=== PATIENT | male | born 1955 | race Caucasian/White ===

== ENCOUNTER 2019-06-23 07:43 | Outpatient (CLI) | payer BC ==
[2019-06-23 11:19] LABS: Hemoglobin 16.1 g/dL (14.0-18.0); Mean Corpuscular HGB CONC 34.1 g/dL (32.0-36.0); Mean Corpuscular Volume 93.8 fL (78.0-98.0); Mean Platelet Volume 7.2 fL (7.4-10.4); Platelet Count 233 thou/uL (130-400); Red Blood Cell (RBC) Count 5.02 mill/uL (4.70-6.10); White Blood Cell (WBC) Count 4.8 thou/uL (4.8-10.8)
[2019-06-23 11:26] LABS: Bacteria/HPF None Seen HPF (None Seen); Bilirubin Negative (Negative); Blood, Urine Negative (Negative); Clarity Clear (Clear); Glucose, Urine (Dipstick) Normal (Negative); Leukocyte Negative Leu/uL (Negative); Nitrite Negative (Negative); Protein, Urine (Dipstick) Negative (Neg-Trace); RBC/HPF 0-3 HPF (0-3); Squamous Epithelial 0-3 HPF (0-3); Urobilinogen Normal mg/dL (Less than 2); WBC/HPF 0-3 HPF (0-3)
[2019-06-23 11:37] LABS: Anion Gap 13 mmol/L (10-20); BUN (Urea Nitrogen) 22 mg/dL (8.4-25.7); Calc. Creatinine Clearance 0 mL/min (70-130); Calcium 8.9 mg/dL (7.8-10.44); Carbon Dioxide 25 mmol/L (23-31); Chloride 106 mmol/L (98-107); Estimated GFR-MDRD 87; Glucose 84 mg/dL (80-115); Potassium 3.9 mmol/L (3.5-5.1); Sodium 140 mmol/L (136-145)
--- NOTE | 2019-06-23 16:49 | EKG ---
Test Reason : Blood Pressure : / mmHG Vent. Rate : 045 BPM Atrial Rate : 045 BPM P-R Int : 170 ms QRS Dur : 088 ms QT Int : 430 ms P-R-T Axes : 071 052 042 degrees QTc Int : 371 ms Marked sinus bradycardia Abnormal ECG Confirmed by BEBO RODRIGUEZ ([id number]) on 06/23/2019 4:48:41 PM Referred By: JANA Confirmed By:BEBO RODRIGUEZ
== END 2019-06-23 07:44 | disposition home or self-care (01) ==
LOC: LABBT 07:43
PROVIDERS: ATTEND Urology
DX: Z01.818 Encounter for other preprocedural examination (principal); N40.0 Benign prostatic hyperplasia without lower urinary tract symptoms
CPT/HCPCS: 80048; 81001; 85027; 87086; 93005; 93010

== ENCOUNTER 2019-07-01 06:10 | Day surgery (SDC) | payer BC ==
[2019-06-23 09:23] VITALS: BMI 24.9
[2019-07-01] MEDS ORDERED: Iothalamate Meglumine 60% 50 ML VIAL FS ONE (06:27)
[2019-07-01] MEDS ORDERED: Fentanyl 100 MCG/2 ML VIAL ONE (06:59)
[2019-07-01] MEDS ORDERED: Levofloxacin 500 mg/D5W 100 ml Premix Bag ONE (07:16)
[2019-07-01] MEDS ORDERED: Ketorolac Tromethamine 30 MG/ML VIAL ONE (09:07)
[2019-07-01] MEDS ORDERED: Phenazopyridine HCl 97.5 MG TABLET ONE (09:07)
[2019-07-01] MEDS ORDERED: Oxybutynin 5 MG TAB ONE (09:08)
[2019-07-01] MEDS ORDERED: Lidocaine 1% PF 5 ML VIAL ONE (09:17)
[2019-07-01] MEDS ORDERED: PROPOFOL 200 MG/20 ML VIAL ONE (09:17)
--- NOTE | 2019-07-01 10:09 | OP ---
DATE OF PROCEDURE: 07/01/2019 PREOPERATIVE DIAGNOSIS: Enlarged prostate with lower urinary tract symptoms. POSTOPERATIVE DIAGNOSIS: Enlarged prostate with lower urinary tract symptoms. PROCEDURE PERFORMED: UroLift utilizing total of 6 implants. ANESTHESIA: TIVA. COMPLICATIONS: None. BLOOD LOSS: 50 mL. SPECIMEN: None. DESCRIPTION OF PROCEDURE: After informed consent, the patient was brought to the operating room and transferred to the table. Anesthesia was established. A time-out was performed showing the correct patient, site, and procedure. Preoperative antibiotics were administered. He was prepped and draped in the lithotomy position. 20[place]izen [place] cystoscope was inserted into the bladder, and the prostate and the bladder were systematically examined. He has a 4 cm channel prostate with large coapting lateral lobes, and no appreciable median lobe. The bladder was examined noting no mucosal abnormalities, and moderate trabeculation with a few small diverticula at the base of the bladder. The cystoscopy bridge was replaced with the UroLift delivery device. The first treatment site was the patient's left side approximately 2 cm distal to the bladder neck. The distal tip of the delivery device was then angled laterally approximately 20 degrees of this position to compress the lateral lobe. The trigger was pulled, thereby deploying a needle containing the implant through the prostate. The needle was then retracted, allowing one end of the implant to be delivered to the capsular surface of the prostate. The implant was then tensioned to assure capsular seeding and removal of slack monofilament. The device was then angled back toward midline and slowly advanced proximally about 3 to 4 mm until cystoscopic verification of the monofilament being centered in the delivery bay. The urethral end piece was then affixed to the monofilament, thereby tailoring the size of the implant. Excess filament was then severed. The delivery device was then readvanced into the bladder. The same procedure was then repeated on the right side near the bladder neck deploying the second implant. Two additional implants, the third and the fourth, were delivered just proximal to the verumontanum, again one on the right and one on the left side of the prostate following the same technique. Cystoscopy then revealed persistent area of obstruction, and two more implants, the fifth and the sixth, were delivered in the mid prostate. After the sixth implant was placed, a final cystoscopic view revealed no persistent obstruction. He had an excellent channel from the verumontanum through the bladder neck anteriorly. Total number of implants used, 6. Final cystoscopy was conducted to inspect location set of each implant and to confirm once again the presence of the continuous anterior channel. With the flow turned off, the patient was having a fair amount of bleeding secondary to the size of his prostate. At this point, I elected to place a catheter. The scope was removed, and a 20[place]Citizen [place] Denson catheter was placed with 10 mL instilled in the balloon. This was irrigated noting return of clear irrigant. The patient was then awoken from anesthesia, transferred back to the hospital bed, and taken to PACU in stable condition, where he will discharge home upon recovery. IMPLANT LOCATION SUMMARY: 1. Implant #1: Left proximal prostatic urethra. 2. Implant #2: Right proximal prostatic urethra. 3. Implant #3: Left distal prostatic urethra. 4. Implant #4: Right distal prostatic urethra. 5. Implant #5: Left mid prostatic urethra. 6. Implant #6: Right mid prostatic urethra. CRITERIA: No active UTI. Conservative management has failed, and surgical intervention is indicated. IPSS 16/3. Prostate volume 80 g. Job ID: [id number]
== END 2019-07-01 10:50 | disposition home or self-care (01) ==
LOC: SDC 06:10
PROVIDERS: ATTEND Urology
PROC: 0T7D8DZ Dilation of Urethra with Intraluminal Device, Via Natural or Artificial Opening Endoscopic (ICD-10-PCS; principal; 2019-07-01)
DX: N40.1 Benign prostatic hyperplasia with lower urinary tract symptoms (principal); Z79.899 Other long term (current) drug therapy; Z88.8 Allergy status to other drugs, medicaments and biological substances; Z91.018 Allergy to other foods
CPT/HCPCS: J1885; J1956; J2001; J2704; J3010

== ENCOUNTER 2022-05-11 08:00 | Outpatient (CLI) | payer BC ==
[2022-05-11] MEDS ORDERED: Iopamidol-370 76% 500 ML 1 ML ONE (14:08)
== END 2022-05-11 08:01 | disposition home or self-care (01) ==
LOC: BICCT 08:00
PROVIDERS: ATTEND Urology
DX: R97.20 Elevated prostate specific antigen [PSA] (principal); N40.1 Benign prostatic hyperplasia with lower urinary tract symptoms; R31.0 Gross hematuria; K57.30 Diverticulosis of large intestine without perforation or abscess without bleeding; K57.10 Diverticulosis of small intestine without perforation or abscess without bleeding
CPT/HCPCS: 74178; Q9967

== ENCOUNTER 2022-09-11 06:23 | Day surgery (SDC) | payer BC ==
[2022-09-08 09:49] VITALS: BMI 25.5
[2022-09-11] MEDS ORDERED: Lidocaine 1% PF 5 ML VIAL ONE (08:20)
[2022-09-11] MEDS ORDERED: PROPOFOL 200 MG/20 ML VIAL ONE (08:20)
== END 2022-09-11 09:23 | disposition home or self-care (01) ==
LOC: SDC 06:23
PROVIDERS: ATTEND Internal Medicine
PROC: 0DJD8ZZ Inspection of Lower Intestinal Tract, Via Natural or Artificial Opening Endoscopic (ICD-10-PCS; principal; 2022-09-11)
DX: Z12.11 Encounter for screening for malignant neoplasm of colon (principal); K57.30 Diverticulosis of large intestine without perforation or abscess without bleeding; K64.8 Other hemorrhoids; I10 Essential (primary) hypertension; I47.20 Ventricular tachycardia, unspecified; Z79.82 Long term (current) use of aspirin; Z79.899 Other long term (current) drug therapy; Z88.8 Allergy status to other drugs, medicaments and biological substances; Z91.018 Allergy to other foods; Z95.810 Presence of automatic (implantable) cardiac defibrillator
CPT/HCPCS: J2704

== ENCOUNTER 2024-12-21 20:50 | Emergency (ER) | payer BC ==
[2024-12-21 21:13] LABS: #Basophils 0.08 10x3/uL (0.0-0.2); #Eosinophils 0.11 10x3/uL (0.0-0.7); #Monocytes 0.74 10x3/uL (0.11-0.59); #Neutrophils 4.34 10x3/uL (1.40-6.50); %Basophils 1.2 % (0.0-1.0); %Eosinophils 1.7 % (0.0-10.0); %Lymphocytes 20.0 % (21.0-51.0); %Monocytes 11.1 % (0.0-10.0); %Neutrophils 65.2 % (42.0-75.0); Hematocrit 45.1 % (42.0-52.0); Hemoglobin 15.3 g/dL (14.0-18.0); Mean Corpuscular Hemoglobin 29.8 pg (27.0-31.0); Mean Corpuscular Volume 87.7 fL (78.0-98.0); Platelet Count 269 10x3/uL (130-400); Red Blood Cell (RBC) Count 5.14 mill/uL (4.70-6.10); White Blood Cell (WBC) Count 6.65 10x3/uL (4.8-10.8)
[2024-12-21] MEDS ORDERED: Magnesium 2 GM/50 ML BAG (IN WATER) ONE (21:25)
[2024-12-21 21:35] LABS: Magnesium 2.1 mg/dL (1.6-2.6)
[2024-12-21 21:57] LABS: ALT (SGPT) 39 U/L (Less than 45); AST (SGOT) 54 U/L (11-34); Albumin 4.0 g/dL (3.1-4.5); Alkaline Phosphatase 73 U/L (40-110); Anion Gap 19 mmol/L (10-20); BUN (Urea Nitrogen) 19 mg/dL (8.4-25.7); Bilirubin, Total 0.7 mg/dL (0.3-1.2); Calc. Creatinine Clearance 0 mL/min (70-130); Calcium 9.0 mg/dL (7.8-10.44); Carbon Dioxide 20 mmol/L (23-31); Chloride 106 mmol/L (98-107); Globulin 2.6 g/dL (2.4-3.5); Glucose 118 mg/dL (83-110); Potassium 4.6 mmol/L (3.5-5.1); Sodium 140 mmol/L (136-145)
== END 2024-12-21 22:59 | disposition short-term general hospital (02) ==
LOC: ERS 20:50
DX: I47.20 Ventricular tachycardia, unspecified (principal); Z79.01 Long term (current) use of anticoagulants; Z79.82 Long term (current) use of aspirin
CPT/HCPCS: 71045; 80053; 83735; 84484; 85025; 93005; 94760; 96365; 96367; 96376; J2690; J3475; J7050